=== PATIENT | female | born 1990 ===

== ENCOUNTER 2017-09-20 07:59 | Emergency (ER) | payer OTHER ==
[2017-09-20] MEDS ORDERED: ceFAZolin 500 MG VIAL(*) 500 MG VIAL IM ONE (09:28)
--- NOTE | 2017-09-20 10:13 | UC ---
Skin Complaint HPI - HPI Summary HPI Summary: 27 yo female c/o R jaw redness and swelling. Picked a pimple last week, redness and pain increased, prompting visit to [facility] today. no fever . No sob. No other sores / ulcers. - History of Current Complaint Chief Complaint: UCSkin Time Seen by Provider: 09/20/17 09:14 Stated Complaint: SOFT TISSUE Hx Obtained From: Patient Hx Last Menstrual Period: 4 days ago - Allergy/Home Medications Allergies/Adverse Reactions: Allergies Allergy/AdvReac Type Severity Reaction Status Date / Time Penicillins Allergy Rash Verified 09/20/17 08:18 Review of Systems Constitutional: Negative Skin: Other - see hpi Eyes: Negative ENT: Negative Respiratory: Negative Cardiovascular: Negative Gastrointestinal: Negative Genitourinary: Negative Motor: Negative Neurovascular: Negative Musculoskeletal: Negative Neurological: Negative Psychological: Negative Is Patient Immunocompromised?: No All Other Systems Reviewed And Are Negative: Yes PMH/Surg Hx/FS Hx/Imm Hx Previously Healthy: Yes - hx lyme dz - Surgical History Surgical History: None - Social History Alcohol Use: None Substance Use Type: None Smoking Status (MU): Never Smoked Tobacco - Immunization History Most Recent Tetanus Shot: unknown Physical Exam Triage Information Reviewed: Yes Appearance: Well-Appearing, Well-Nourished Vital Signs: Initial Vital Signs Temp 98.7 F 09/20/17 08:13 Pulse 73 09/20/17 08:13 Resp 18 09/20/17 08:13 BP 110/71 09/20/17 08:13 Pulse Ox 100 09/20/17 08:13 Vital Signs Reviewed: Yes Eye Exam: Normal ENT Exam: Other - R lateral mandible area with approx 3cm redness and swelling. Firm, minimally fluctuant, not draining. Neck exam: Normal Neck: Positive: Supple, Nontender Respiratory Exam: Normal Respiratory: Positive: Chest non-tender, Lungs clear, Normal breath sounds Cardiovascular Exam: Normal Cardiovascular: Positive: RRR, Brisk Capillary Refill Abdominal Exam: Normal Musculoskeletal Exam: Normal - grossly normal, gait steady Neurological Exam: Normal - facial expressions symmetric. MMM. Focused neuro exam not done, grossly normal Psychological Exam: Normal - conversing easily and appropriately Skin Exam: Normal - nondiaphoretic. good general color. Re R mandible - see "ENT" Course/Dx - Course Course Of Treatment: D/w pt coa / tx plan. Reviewed pcn allergy. Rx doxycycline. Ancef IM here - tolerated well, no reaction by d/c. Will check tet booster status, thinks utd. Seek medical attention if worse or new problems. - Diagnoses Provider Diagnoses: R facial cellulitis. Discharge - Discharge Plan Condition: Stable Disposition: HOME Prescriptions: DOXYcycline CAP(*) [DOXYcycline 100MG CAP(*)] 100 mg PO BID #20 cap Patient Education Materials: Cellulitis (ED), Abscess (ED) Forms: *Work Release Referrals: Carlos A Devine MD [Primary Care Provider] -
== END 2017-09-20 09:53 | disposition home or self-care (01) ==
LOC: UCEAST 07:59
DX: L03.211 Cellulitis of face (principal)
CPT/HCPCS: 96372; 99202; G0463; J0690

== ENCOUNTER 2018-02-11 11:35 | Emergency (ER) | payer BC, OTHER ==
[2018-02-11 11:52] VITALS: BP 128/85
--- NOTE | 2018-02-11 12:09 | ED ---
Skin Complaint - HPI Summary HPI Summary: 27 y/o female presents to the urgent care c/o rash around lips, neck and nose w / lip swelling. Pt reports she developed a scaling rash in her nose about 3 weeks ago and she went to [facility] and Dx w/ Seborrheic dermatitis and Rx Ketaconazole 2% topical cream and Desonide topical cream. She has been applying them w/o any improvement. Then about 2 days ago she developed some tingling and painful vesicles around lips and nose. She has also used Abreva for the past 2 days. This morning she woke up w/ swollen lips and rash around lips, chin, and neck that itches. Pt denies throat swelling, SOB , difficulty breathing, chest pain, abdominal pain,N/V/D - History of Current Complaint Chief Complaint: UCRash Time Seen by Provider: 02/11/18 12:07 Stated Complaint: RASH, LIP SWELLING Hx Obtained From: Patient Hx Last Menstrual Period: 4 days ago Onset/Duration: Started Weeks Ago - 3 weeks ago, Still Present Skin Exposure Onset/Duration: Worse Since: - yesterday Timing: Constant Onset Severity: Mild Current Severity: Moderate Pain Intensity: 4 Pain Scale Used: 0-10 Numeric Skin Location: Discrete - around lips, chin and nose Character: Swelling, Pruritus, Pain, Redness Aggravating Symptom(s): Touch Alleviating Symptom(s): OTC Meds Associated Signs & Symptoms: Rash - Allergy/Home Medications Allergies/Adverse Reactions: Allergies Allergy/AdvReac Type Severity Reaction Status Date / Time Penicillins Allergy Rash Verified 02/11/18 11:52 Home Medications: Home Medications Desonide 0.005% OINT(NF) 0.05 % EX 02/11/18 [History] Docosanol 10%* [Abreva 10%*] 1 applic TOPICAL 5ID 02/11/18 [History Confirmed ] Ketoconazole 2 % CREAM (NF) [Nizoral 2% CREAM (NF)] 1 applic 02/11/18 [History] PMH/Surg Hx/FS Hx/Imm Hx Previously Healthy: Yes Respiratory History: Reports: Hx Asthma - as a child Infectious Disease History: No Infectious Disease History: Denies: History Other Infectious Disease, Traveled Outside the [place] in Last 30 Days - Family History Known Family History: Positive: Cardiac Disease, Diabetes - Social History Occupation: Employed Full-time Lives: With Family Alcohol Use: None Substance Use Type: Reports: Marijuana Substance Use Comment - Amount & Last Used: weekly Smoking Status (MU): Never Smoked Tobacco Review of Systems Constitutional: Negative Eyes: Negative ENT: Negative Cardiovascular: Negative Respiratory: Negative Gastrointestinal: Negative Genitourinary: Negative Musculoskeletal: Negative Positive: Rash - around mouth, nose w/ lip swelling, Other Neurological: Negative All Other Systems Reviewed And Are Negative: Yes Physical Exam - Summary Physical Exam Summary: Vital Signs Reviewed: Yes General: well developed, well nourished female sitting in the examining table w/ o any apparent distress. Eyes: Positive: Conjunctiva Clear - PERRLA, EOMI ENT: Positive: Normal ENT inspection, Hearing grossly normal, Pharynx normal, TMs normal Neck: Positive: Supple, Nontender, No Lymphadenopathy Respiratory: Positive: Chest nontender, Lungs clear, Normal breath sounds Cardiovascular: Positive: RRR, No Murmur, Pulses Normal Abdomen Description: Positive: Nontender, No Organomegaly, Soft. Negative: CVA Tenderness (R), CVA Tenderness (L) Bowel Sounds: Positive: Present Musculoskeletal: Positive: Strength Intact, ROM Intact, No Edema Neurological Exam: Normal Psychological Exam: Normal Skin: Positive: rashes - Positive erythematous maculopapular eruption around lips, chin, nose and neck, non tenderness to palpation. also vesicular eruption around the rt side corner and upper vermilon border and entrance of the left nostril, tender to palpation w/ clear discharge. Triage Information Reviewed: Yes Vital Signs On Initial Exam: Initial Vitals Temp Pulse Resp BP Pulse Ox 99.7 F 54 18 128/85 100 02/11/18 11:46 02/11/18 11:46 02/11/18 11:46 02/11/18 11:46 02/11/18 11:46 Diagnostics - Vital Signs Vital Signs Temp Pulse Resp BP Pulse Ox 02/11/18 11:46 99.7 F 54 18 128/85 100 - Laboratory Lab Statement: Any lab studies that have been ordered have been reviewed, and results considered in the medical decision making process. Course/Dx - Course Course Of Treatment: 27 y/o female presents to the urgent care c/o rash around lips, neck and nose w/ lip swelling. Pt reports she developed a scaling rash in her nose about 3 weeks ago and she went to [facility] and Dx w / Seborrheic dermatitis and Rx Ketaconazole 2% topical cream and Desonide topical cream. She has been applying them w/o any improvement. Then about 2 days ago she developed some tingling and painful vesicles around lips and nose. She has also used Abreva for the past 2 days. This morning she woke up w/ swollen lips and rash around lips, chin, and neck that itches. Pt denies throat swelling, SOB, difficulty breathing, chest pain, abdominal pain,N/V/D. Hx obtained. Pt w/ Positive erythematous maculopapular eruption around lips, chin, nose and neck, non tenderness to palpation. also vesicular eruption around the rt side corner and upper vermilon border and entrance of the left nostril, tender to palpation w/ clear discharge on examination. Probably Herpes Simplex I w/ a contact dermatitis of unkown source.Pt given Methylprednisolone IM inj at the clinic. Pt tolerated well IM inj and felt better.PT Rx Benadryl PO for pruritus and Prednisone taper dose and Valcyclovir PO. Advised to stope Kentaconazole topical cream and if not improvement or worsening of symptoms to f/u w/ Dr Mariano [facility] for further treatment.PT understood and agreed with D/C instructions - Differential Diagnoses - Skin Complaint Differential Diagnoses: Contact Dermatitis, Drug Rash, Impetigo, Local Allergic Reaction, Other - herpes simplex - Diagnoses Provider Diagnoses: Herpes simplex, Rash and nonspecific skin eruption Discharge - Sign-Out/Discharge Documenting (check all that apply): Discharge - Discharge Plan Condition: Stable Disposition: HOME Prescriptions: diPHENhydraMINE PO* [Benadryl PO 25 MG TAB*] 25 mg PO Q6H PRN #20 tab PRN Reason: pruritus predniSONE TAB* [Deltasone TAB*] 20 mg PO DAILY #11 tab ValACYclovir (*) [Valtrex 500 mg (*)] 500 mg PO DAILY #8 tab Patient Education Materials: Oral Herpes Simplex Virus Infections (ED), Acute Rash (ED) Referrals: [facility] [place] [facility] [Outside] - 3 Days Conchis Mariano [Medical Doctor] - 3 Days Additional Instructions: 1-Please start taking Oral Prednisone as directed starting tomorrow to alleviate rash and swelling. First dose given today 2-Take Valacyclovir PO as directed for Herpes Simplex as directed. 3-Take Benadryl PO as directed to alleviate itchiness and rash. 4-If symptoms do not improve or worsen please f/u with your [facility] or DR Mariano for further further evaluation and treatment. - Billing Disposition and Condition Condition: STABLE Disposition: HOME
[2018-02-11] MEDS ORDERED: methylPREDNISolone 125 MG* 2 ML VIAL IM ONE (12:29)
== END 2018-02-11 12:51 | disposition home or self-care (01) ==
LOC: UCEAST 11:35
DX: B00.1 Herpesviral vesicular dermatitis (principal); R21 Rash and other nonspecific skin eruption; Z88.0 Allergy status to penicillin
CPT/HCPCS: 96372; 99212; G0463; J2930